=== PATIENT | female | born 1980 | race Asian ===

== ENCOUNTER → 2018-06-28 | Outpatient (CLI) | payer OTHER | END | disposition home or self-care (01) | LOC: HKI 09:29 | DX: M16.12 Unilateral primary osteoarthritis, left hip (principal) | CPT/HCPCS: 73502 ==

== ENCOUNTER 2018-09-30 05:19 | Inpatient (IN) | payer OTHER ==
[2018-09-30] MEDS: CEFAZOLIN 2 GM/50 ML (PMX) 50 ML IVPB (06:00)
[2018-09-30] MEDS: DEXAMETHASONE 1 MG TAB PO (06:04)
[2018-09-30] MEDS: GABAPENTIN 300 MG CAP PO ×2 (06:04→20:46)
[2018-09-30] MEDS ORDERED: LACTATED RINGER'S 1,000 ML IV (06:30)
[2018-09-30] MEDS ORDERED: morphine SULFATE/PF (10 MG/10 ML) INJ (06:45)
[2018-09-30] MEDS ORDERED: MIDAZOLAM 1 MG/ML 2 ML INJ (06:45)
[2018-09-30] MEDS ORDERED: CEFAZOLIN 1 GM INJ (07:00)
[2018-09-30] MEDS: TRANEXAMIC ACID 1GM/100ML(PMX) 100 ML IVPB (07:00)
[2018-09-30] MEDS ORDERED: ALBUTEROL 0.083% (NEB) 2.5 MG/3 ML AMP HHN (07:00)
[2018-09-30] MEDS ORDERED: METOCLOPRAMIDE 10 MG INJ IV (07:00)
[2018-09-30] MEDS ORDERED: DIPHENHYDRAMINE 50 MG INJ IV ×2 (07:00→09:00)
[2018-09-30] MEDS ORDERED: HYDROmorphONE 1 MG/5 ML IV SYRINGE IV ×3 (07:00)
[2018-09-30] MEDS: SOD CHLORIDE 0.9% 100 ML, TRANEXAMIC ACID 3,000 MG IRR (07:00)
[2018-09-30] MEDS ORDERED: ROCURONIUM 50 MG INJ ×2 (07:00→07:39)
[2018-09-30] MEDS ORDERED: DESFLURANE 15 MIN (07:00)
[2018-09-30] MEDS ORDERED: MEPERIDINE 25 MG INJ IV (07:00)
[2018-09-30] MEDS ORDERED: FENTAnyl 50 MCG/ML VIAL IV ×2 (07:00)
[2018-09-30] MEDS ORDERED: TRANEXAMIC ACID 1GM/100ML(PMX) 100 ML (07:24)
[2018-09-30] MEDS ORDERED: PHENYLephrine (100 MCG/ML) 10ML SYG (07:27)
[2018-09-30] MEDS ORDERED: CA CHLORIDE 10% 10 ML SYRINGE (07:32)
[2018-09-30] MEDS ORDERED: THROMBIN 5000 UNIT VIAL (07:32)
[2018-09-30] MEDS ORDERED: SUCCINYLCHOLINE CHLORIDE 100 MG/5 ML SYG IV (07:39)
[2018-09-30] MEDS ORDERED: LIDOCAINE 100 MG SYRINGE (07:39)
[2018-09-30] MEDS ORDERED: PROPOFOL 20 ML (07:39)
[2018-09-30] MEDS: TRANEXAMIC ACID 1GM/100ML(PMX) 100 ML (07:45)
[2018-09-30] MEDS: LACTATED RINGER'S 1,000 ML IV ×4 (08:45→22:38)
[2018-09-30] MEDS ORDERED: NEOSTIGMINE 3 MG/3 ML SYRINGE (08:50)
[2018-09-30] MEDS ORDERED: GLYCOPYRROLATE 0.4 MG INJ (08:50)
[2018-09-30] MEDS ORDERED: MAGNESIUM HYDROXIDE 30ML CUP PO (09:00)
[2018-09-30] MEDS ORDERED: ZOLPIDEM 5 MG TAB PO (09:00)
[2018-09-30] MEDS ORDERED: NACL 0.9% 3 ML SYG IV (09:00)
[2018-09-30] MEDS: BUPIVACAINE 0.5% (SDV) 30 ML, morphine SULFATE (PF) 8 MG, EPINEPHrine 0.3 MG, KETOROLAC... IRR (09:08)
[2018-09-30] MEDS: POLYMYXIN/BACITRACIN 1L IRRIG (09:09)
[2018-09-30 09:26] LABS: ADD MAN DIFF? NO
[2018-09-30 09:28] LABS: BASOPHIL # 0.1 10^3/ul (0.0-0.1); BASOPHILS % 0.5 % (0.0-2.0); EOSINOPHILS % 0.1 % (0.0-7.0); HEMATOCRIT 37.2 % (37.0-47.0); HEMOGLOBIN 11.6 g/dl (12.0-16.0); LYMPHOCYTES # 1.6 10^3/ul (0.8-2.9); LYMPHOCYTES % 11.8 % (15.0-51.0); MEAN CORPUSCULAR HEMOGLOBIN 29.7 pg (29.0-33.0); MEAN CORPUSCULAR HGB CONC 31.2 g/dl (32.0-37.0); MEAN CORPUSCULAR VOLUME 95.4 fl (82.0-101.0); MEAN PLATELET VOLUME 9.1 fl (7.4-10.4); MONOCYTE # 0.3 10^3/ul (0.3-0.9); MONOCYTES % 2.3 % (0.0-11.0); NEUTROPHIL # 11.5 10^3/ul (1.6-7.5); PLATELET COUNT 351 10^3/UL (140-415); RED CELL DISTRIBUTION WIDTH 13.4 % (11.5-14.5)
[2018-09-30] MEDS ORDERED: CEFAZOLIN 1 GM/50 ML (PMX) 50 ML IVPB (09:33)
[2018-09-30 09:36] LABS: HOLD TRANSMISSIONS 1
[2018-09-30 09:40] LABS: WHITE BLOOD COUNT 13.7 10^3/ul (4.8-10.8)
[2018-09-30] MEDS ORDERED: BUPIVACAINE 0.5% (SDV) 30 ML, morphine SULFATE (PF) 8 MG, EPINEPHrine 0.3 MG, CLONIDINE... IRR (10:00)
[2018-09-30] MEDS: ONDANSETRON 4 MG INJ IV ×3 (10:28→20:45)
[2018-09-30] MEDS: ACETAMINOPHEN 1000MG/100ML IV 100 ML IVPB ×2 (10:58→17:05)
[2018-09-30] MEDS: SENNA/DOCUSATE NA (8.6MG/50MG) TAB PO ×2 (10:58→20:46)
[2018-09-30] MEDS: DEXAMETHASONE 2 MG TAB PO ×2 (11:46→17:05)
[2018-09-30] MEDS ORDERED: oxyCODONE 5 MG TAB PO ×2 (12:00)
[2018-09-30] MEDS ORDERED: HYDROmorphONE 1 MG/ML SYG IV (12:00)
[2018-09-30] MEDS: CEFAZOLIN 1 GM/50 ML (PMX) 50 ML IVPB (17:05)
[2018-09-30] MEDS: oxyCODONE 5 MG TAB PO (22:38)
[2018-10-01] MEDS: CEFAZOLIN 1 GM/50 ML (PMX) 50 ML IVPB ×2 (00:27→08:34)
[2018-10-01] MEDS: DEXAMETHASONE 2 MG TAB PO ×2 (00:27→06:03)
[2018-10-01] MEDS: ACETAMINOPHEN 1000MG/100ML IV 100 ML IVPB (00:28)
[2018-10-01 05:21] LABS: ADD MAN DIFF? NO
[2018-10-01 05:36] LABS: BASOPHILS % 0.2 % (0.0-2.0); HEMATOCRIT 29.2 % (37.0-47.0); HEMOGLOBIN 9.5 g/dl (12.0-16.0); LYMPHOCYTES # 1.2 10^3/ul (0.8-2.9); LYMPHOCYTES % 8.4 % (15.0-51.0); MEAN CORPUSCULAR HGB CONC 32.5 g/dl (32.0-37.0); MEAN CORPUSCULAR VOLUME 92.1 fl (82.0-101.0); MEAN PLATELET VOLUME 9.7 fl (7.4-10.4); MONOCYTE # 1.1 10^3/ul (0.3-0.9); MONOCYTES % 7.5 % (0.0-11.0); NEUTROPHIL # 11.7 10^3/ul (1.6-7.5); NEUTROPHILS % 83.5 % (39.0-77.0); PLATELET COUNT 292 10^3/UL (140-415); RED BLOOD COUNT 3.17 10^6/ul (4.20-5.40); RED CELL DISTRIBUTION WIDTH 13.4 % (11.5-14.5)
[2018-10-01 05:36] LABS: WHITE BLOOD COUNT 14.1 10^3/ul (4.8-10.8)
[2018-10-01] MEDS: oxyCODONE 5 MG TAB PO (06:03)
[2018-10-01] MEDS: ONDANSETRON 4 MG INJ IV (06:08)
[2018-10-01] MEDS: SENNA/DOCUSATE NA (8.6MG/50MG) TAB PO (08:34)
[2018-10-01] MEDS: ACETAMINOPHEN 325 MG TAB PO (10:03)
[2018-10-02] MEDS ORDERED: MAGNESIUM HYDROXIDE 30ML CUP PO (21:00)
== END 2018-10-01 13:44 | disposition home or self-care (01) | DRG 470 ==
LOC: REC 05:19 → MS1 10:37
PROVIDERS: Orthopaedic Surgery
PROC: 0SRB04A Replacement of Left Hip Joint with Ceramic on Polyethylene Synthetic Substitute, Uncemented, Open Approach (ICD-10-PCS; principal; 2018-09-30 06:59)
DX: M16.12 Unilateral primary osteoarthritis, left hip (principal)
CPT/HCPCS: 72170; 73530; 84703; 85025; 86999; 88304; 88311; 97161